=== PATIENT | male | born 1960 | race Caucasian/White ===

== ENCOUNTER 2021-10-19 23:39 | Emergency (ER) | payer SELFPAY ==
[2021-10-20 01:11] LABS: BASOPHIL 0.6 % (0-2); EOSINOPHIL 5.6 % (0-5); HCT 42.5 % (42.0-52.0); HGB 14.4 g/dl (13.2-18.0); MCH 31.9 pg (25.0-31.0); MCHC 33.9 g/dL (32.0-36.0); MCV 94.2 fL (78.0-100.0); MONOCYTE 7.4 % (0-12); NRBC 0; PLT 225 K/uL (150-400); RBC 4.51 M/uL (4.70-6.00); RDW 13.6 % (11.5-14.0); WBC 7.9 K/uL (4.0-10.5)
[2021-10-20 01:40] LABS: ALBUMIN 3.2 g/dL (3.4-5.0); BILIRUBIN - TOTAL 0.4 mg/dL (0.2-1.0); POTASSIUM 4.3 mmol/L (3.5-5.1); TOTAL PROTEIN 6.2 g/dL (6.4-8.2)
[2021-10-20 01:55] LABS: BILIRUBIN NEGATIVE (NEGATIVE); BLOOD NEGATIVE Ery/uL (NEGATIVE); CLARITY CLEAR (CLEAR); COLOR YELLOW (YELLOW); GLUCOSE (U) NORMAL (NORMAL); LEUKOCYTES NEGATIVE Leu/uL (NEGATIVE); NITRITE NEGATIVE (NEGATIVE); PROTEIN NEGATIVE (NEGATIVE); SPECIFIC GRAVITY 1.025 (1.001-1.030); UROBILINOGEN 0.2 mg/dL (0.2-1.0)
[2021-10-20 01:58] LABS: URINARY WBC RARE
[2021-10-20 01:59] LABS: TRANSITIONAL EPITHELIAL CELLS RARE
== END 2021-10-20 03:33 | disposition home or self-care (01) ==
LOC: FER 23:39
PROVIDERS: Emergency Medicine
DX: R10.32 Left lower quadrant pain (principal); R19.7 Diarrhea, unspecified; K21.9 Gastro-esophageal reflux disease without esophagitis; Z79.899 Other long term (current) drug therapy
CPT/HCPCS: 36415; 80053; 81001; 83690; 85025; J1885; J7030; Q9967